=== PATIENT | male | born 1940 | race Two or more races ===

== ENCOUNTER 2021-02-10 22:51 | Inpatient (IN) | payer MEDICARE, MEDICAID ==
[~2021-02-10] VITALS: Ht 167.6 cm; Wt 44.5 kg
[2021-02-10] MEDS ORDERED: ONDANSETRON HCL 4MG/2ML INJ IV STA (22:54)
[2021-02-10] MEDS ORDERED: FAMOTIDINE 20MG/2ML VIAL IV STA (22:54)
[2021-02-10] MEDS ORDERED: PANTOPRAZOLE SODIUM 40 MG/VIAL IV STA (22:54)
[2021-02-10] MEDS ORDERED: PIPERACILLIN/TAZ 3.375G PREMIX 50 ML IV ONE (23:00)
[2021-02-10 23:35] LABS: BG BASE EXCESS 4.8 mmol/L (-2.0-2.0); BG CARBOXYHEMOGLOBIN 0.5 % (0.5-1.5); BG DEOXYHEMOGLOBIN 2.3 % (0.0-5.0); BG FRACTION INSPIRED OXYGEN 21; BG HCO3 ACT 24.8 mmol/L (22.0-26.0); BG METHEMOGLOBIN 0.2 % (0.0-1.5); BG OXYGEN SATURATION 97.7 % (92.0-98.5); BG PCO2 21.9 mmHg (35.0-45.0); BG PH 7.672 (7.350-7.450); BG PO2 86.1 mmHg (75.0-100.0); BG SAMPLE SITE LEFT RADIAL; BG TOTAL HEMOGLOBIN 8.5 g/dL (12.0-18.0); BG VENT MODE ROOM AIR
[2021-02-11] VITALS (20 sets, daily range): BP systolic 92–159; BP diastolic 49–94
[2021-02-11] MEDS ORDERED: DIPHENHYDRAMINE 50MG/ML VIAL IV PRN
[2021-02-11] MEDS ORDERED: CLONIDINE 0.1MG TABLET PO PRN
[2021-02-11] MEDS ORDERED: ONDANSETRON HCL 4MG/2ML INJ IV PRN
[2021-02-11 00:05] LABS: BASOPHILS % 0.2 % (0.0-2.0); EOSINOPHILS % 0.6 % (0.0-5.0); HEMATOCRIT. 24.3 % (42.0-52.0); HEMOGLOBIN. 8.5 g/dL (14.0-18.0); LYMPHOCYTES % 25.4 % (20.0-50.0); MEAN CORPUSCULAR HEMOGLOBIN 29.9 pg (28.0-32.0); MEAN CORPUSCULAR VOLUME 85.3 fL (80.0-94.0); MEAN PLATELET VOLUME 9.8 fl (7.4-10.4); MONOCYTES % 6.1 % (2.0-8.0); NEUTROPHILS % 67.7 % (40.0-76.0); PLATELET 353 x1000/uL (130-400); RED BLOOD CELL COUNT 2.86 mill/uL (4.7-6.1)
[2021-02-11 00:10] LABS: CHLORIDE 105 mEq/L (98-107)
[2021-02-11 00:11] LABS: INR 1.1; PROTHROMBIN TIME 11.3 sec (9.6-11.0)
[2021-02-11 00:16] LABS: TOTAL IRON BINDING CAPACITY 166 ug/dL (250-450)
[2021-02-11] MEDS: DEXT 5%/0.45% NACL 1000ML 1,000 ML IV SCH ×2 (02:24→18:20)
[2021-02-11 06:20] LABS: HEMATOCRIT 21.7 % (42.0-52.0); HEMOGLOBIN 7.2 g/dL (14.0-18.0)
[2021-02-11] MEDS: PANTOPRAZOLE SODIUM 40 MG/VIAL IV SCH (10:35)
[2021-02-11] MEDS ORDERED: SORBITOL 70% SOLN 30ML PO NR (11:00)
[2021-02-11] MEDS ORDERED: MINERAL OIL ENEMA 133ML PR NR (12:30)
[2021-02-11 12:41] LABS: TOTAL IRON BINDING CAPACITY 179 ug/dL (250-450)
[2021-02-11] MEDS: ACETAMINOPHEN 650MG/20.3ML UDC GT PRN (14:47)
[2021-02-11] MEDS ORDERED: NA PHOS,M-B/NA PHOS,DI-BA ENEMA 118ML PR NR (16:00)
[2021-02-11 20:32] LABS: HEMATOCRIT 29.8 % (42.0-52.0); HEMOGLOBIN 10.2 g/dL (14.0-18.0)
[2021-02-11 21:10] LABS: FOLIC ACID (FOLATE) SERUM 16.7 ng/mL (>5.38)
[2021-02-12] VITALS (13 sets, daily range): BP systolic 110–148; BP diastolic 56–88
[2021-02-12 07:33] LABS: BASOPHILS % 0.3 % (0.0-2.0); EOSINOPHILS % 0.4 % (0.0-5.0); HEMATOCRIT. 32.5 % (42.0-52.0); HEMOGLOBIN. 10.7 g/dL (14.0-18.0); LYMPHOCYTES % 14.5 % (20.0-50.0); MEAN CORPUSCULAR HEMOGLOBIN 28.9 pg (28.0-32.0); MEAN CORPUSCULAR VOLUME 87.2 fL (80.0-94.0); MEAN PLATELET VOLUME 9.8 fl (7.4-10.4); MONOCYTES % 6.5 % (2.0-8.0); NEUTROPHILS % 78.3 % (40.0-76.0); PLATELET 274 x1000/uL (130-400); RED BLOOD CELL COUNT 3.72 mill/uL (4.7-6.1); RED CELL DISTRIBUTION WIDTH 15.6 % (11.6-14.6)
[2021-02-12 08:01] LABS: CHLORIDE 109 mEq/L (98-107)
[2021-02-12] MEDS: PANTOPRAZOLE SODIUM 40 MG/VIAL IV SCH (08:20)
[2021-02-12] MEDS: DEXT 5%/0.45% NACL 1000ML 1,000 ML IV SCH ×2 (08:21→23:40)
[2021-02-12 16:14] LABS: HEMOGLOBIN 10.4 g/dL (14.0-18.0)
[2021-02-12] MEDS: ACETAMINOPHEN 650MG/20.3ML UDC GT PRN (18:11)
[2021-02-12 23:32] LABS: HEMATOCRIT 28.7 % (42.0-52.0); HEMOGLOBIN 9.8 g/dL (14.0-18.0)
[2021-02-13] VITALS (11 sets, daily range): BP systolic 91–147; BP diastolic 43–84
[2021-02-13] MEDS: ACETAMINOPHEN 650MG/20.3ML UDC GT PRN ×2 (02:05→12:40)
[2021-02-13 07:24] LABS: HEMATOCRIT 31.8 % (42.0-52.0); HEMOGLOBIN 10.8 g/dL (14.0-18.0)
[2021-02-13] MEDS: PANTOPRAZOLE SODIUM 40 MG/VIAL IV SCH (08:39)
[2021-02-13] MEDS: DEXT 5%/0.45% NACL 1000ML 1,000 ML IV SCH (14:02)
[2021-02-13 16:44] LABS: HEMATOCRIT 30.8 % (42.0-52.0); HEMOGLOBIN 10.4 g/dL (14.0-18.0)
[2021-02-13] MEDS: LIDOCAINE 5% PATCH TOP SCH (22:29)
[2021-02-13 23:46] LABS: HEMATOCRIT 29.5 % (42.0-52.0); HEMOGLOBIN 10.1 g/dL (14.0-18.0)
[2021-02-14] VITALS (11 sets, daily range): BP systolic 99–136; BP diastolic 52–70
[2021-02-14] MEDS: DEXT 5%/0.45% NACL 1000ML 1,000 ML IV SCH ×2 (05:09→21:14)
[2021-02-14 08:30] LABS: BASOPHILS % 0.5 % (0.0-2.0); EOSINOPHILS % 2.4 % (0.0-5.0); HEMATOCRIT. 28.4 % (42.0-52.0); HEMOGLOBIN. 9.4 g/dL (14.0-18.0); LYMPHOCYTES % 27.8 % (20.0-50.0); MEAN CORPUSCULAR HEMOGLOBIN 29.9 pg (28.0-32.0); MEAN CORPUSCULAR VOLUME 90.1 fL (80.0-94.0); MEAN PLATELET VOLUME 10.5 fl (7.4-10.4); MONOCYTES % 9.2 % (2.0-8.0); NEUTROPHILS % 60.1 % (40.0-76.0); PLATELET 254 x1000/uL (130-400); RED BLOOD CELL COUNT 3.15 mill/uL (4.7-6.1); RED CELL DISTRIBUTION WIDTH 16.2 % (11.6-14.6)
[2021-02-14 08:37] LABS: CHLORIDE 112 mEq/L (98-107)
[2021-02-14] MEDS: PANTOPRAZOLE SODIUM 40 MG/VIAL IV SCH (09:02)
[2021-02-14] MEDS: LIDOCAINE 5% PATCH TOP SCH (21:15)
[2021-02-15] VITALS (18 sets, daily range): BP systolic 101–135; BP diastolic 55–76
[2021-02-15] MEDS: PANTOPRAZOLE SODIUM 40 MG/VIAL IV SCH (09:26)
[2021-02-15 10:51] LABS: BASOPHILS % 0.6 % (0.0-2.0); EOSINOPHILS % 2.2 % (0.0-5.0); HEMATOCRIT. 29.7 % (42.0-52.0); HEMOGLOBIN. 10.1 g/dL (14.0-18.0); LYMPHOCYTES % 25.6 % (20.0-50.0); MEAN PLATELET VOLUME 10.1 fl (7.4-10.4); MONOCYTES % 8.7 % (2.0-8.0); NEUTROPHILS % 62.9 % (40.0-76.0); PLATELET 303 x1000/uL (130-400); RED BLOOD CELL COUNT 3.37 mill/uL (4.7-6.1); RED CELL DISTRIBUTION WIDTH 16.4 % (11.6-14.6)
[2021-02-15 12:22] LABS: CHLORIDE 112 mEq/L (98-107)
[2021-02-15] MEDS: DEXT 5%/0.45% NACL 1000ML 1,000 ML IV SCH (13:15)
[2021-02-15] MEDS: LIDOCAINE 5% PATCH TOP SCH (21:49)
[2021-02-16] VITALS (12 sets, daily range): BP systolic 98–123; BP diastolic 55–69
[2021-02-16] MEDS: DEXT 5%/0.45% NACL 1000ML 1,000 ML IV SCH (04:17)
[2021-02-16 07:25] LABS: BASOPHILS % 0.5 % (0.0-2.0); EOSINOPHILS % 3.3 % (0.0-5.0); HEMATOCRIT. 27.9 % (42.0-52.0); HEMOGLOBIN. 9.4 g/dL (14.0-18.0); LYMPHOCYTES % 32.1 % (20.0-50.0); MEAN CORPUSCULAR HEMOGLOBIN 29.7 pg (28.0-32.0); MEAN PLATELET VOLUME 9.8 fl (7.4-10.4); MONOCYTES % 10.8 % (2.0-8.0); NEUTROPHILS % 53.3 % (40.0-76.0); PLATELET 289 x1000/uL (130-400); RED BLOOD CELL COUNT 3.17 mill/uL (4.7-6.1); RED CELL DISTRIBUTION WIDTH 16.5 % (11.6-14.6)
[2021-02-16] MEDS: PANTOPRAZOLE SODIUM 40 MG/VIAL IV SCH (08:31)
[2021-02-16 09:13] LABS: CHLORIDE 110 mEq/L (98-107)
== END 2021-02-16 14:27 | DRG 380 ==
LOC: ER 22:58 → MICUSO 02-11 00:24 → 3WST 02-11 04:38 → MICUSO 02-11 05:41 → 6EST 02-11 07:13 → MICUSO 02-11 08:23 → 6EST 02-11 08:40 → 3WST 02-11 12:33
PROVIDERS: ADMIT Internal Medicine Nephrology; ATTEND Internal Medicine Nephrology
PROC: 30233N1 Transfusion of Nonautologous Red Blood Cells into Peripheral Vein, Percutaneous Approach (ICD-10-PCS; principal; 2021-02-11)
DX: K22.11 Ulcer of esophagus with bleeding (principal); E43 Unspecified severe protein-calorie malnutrition; Z68.1 Body mass index [BMI] 19.9 or less, adult; K56.41 Fecal impaction; G62.9 Polyneuropathy, unspecified; E78.5 Hyperlipidemia, unspecified; I10 Essential (primary) hypertension; Z20.822 Contact with and (suspected) exposure to COVID-19; J44.9 Chronic obstructive pulmonary disease, unspecified; F32.9 Major depressive disorder, single episode, unspecified; I95.9 Hypotension, unspecified; D64.9 Anemia, unspecified; Z86.73 Personal history of transient ischemic attack (TIA), and cerebral infarction without residual deficits; Z93.1 Gastrostomy status; K22.70 Barrett's esophagus without dysplasia
CPT/HCPCS: 36415; 36600; 71045; 74176; 80048; 80053; 82270; 82375; 82728; 82746; 82805; 83540; 83550; 83605; 83880; 84484; 85014; 85018; 85025; 85044; 86850; 86900; 86920; 87426; 93005; 93971; 99285; A6261; C9113; J2405; J2543; J3490; J7040; J7042; P9016

== ENCOUNTER 2021-04-30 20:39 | Emergency (ER) | payer MEDICARE, MEDICAID ==
[~2021-04-30] VITALS: Ht 154.9 cm; Wt 50.0 kg
[2021-05-01 08:40] VITALS: BP 121/64
== END 2021-05-01 08:51 ==
LOC: ER 20:39
DX: M16.11 Unilateral primary osteoarthritis, right hip (principal); Z91.81 History of falling; K59.09 Other constipation; K44.9 Diaphragmatic hernia without obstruction or gangrene; R03.0 Elevated blood-pressure reading, without diagnosis of hypertension; K76.0 Fatty (change of) liver, not elsewhere classified; Z87.81 Personal history of (healed) traumatic fracture; N20.0 Calculus of kidney; J44.9 Chronic obstructive pulmonary disease, unspecified; E78.00 Pure hypercholesterolemia, unspecified; Z86.73 Personal history of transient ischemic attack (TIA), and cerebral infarction without residual deficits
CPT/HCPCS: 74176; 99284

== ENCOUNTER 2022-04-12 14:35 | Inpatient (IN) | payer MEDICARE, MEDICAID ==
[~2022-04-12] VITALS: Ht 172.7 cm; Wt 60.1 kg
[~2022-04-12 14:35] MED LIST: ASPI-1497 PO; BISA10SU62 RC; CLON-457 GT; FE300LUD MT; LIP40 MT; MIRT-118 PO; MOM PO; OLAN5TAB6 PO; OMEP20CA14 PO; ONDA4TAB50 PO; PROT40 MT; [UNRECOGNIZED DRUG - CODE]
[2022-04-12 15:59] LABS: BASOPHILS % 0.3 % (0.0-2.0); EOSINOPHILS % 1.6 % (0.0-5.0); MEAN CORPUSCULAR HEMOGLOBIN 26.5 pg (28.0-32.0); MEAN CORPUSCULAR VOLUME 84.4 fL (80.0-94.0); MEAN PLATELET VOLUME 11.3 fl (7.4-10.4); MONOCYTES % 9.4 % (2.0-8.0); NEUTROPHILS % 74.7 % (40.0-76.0); PLATELET 261 x1000/uL (130-400); RED BLOOD CELL COUNT 2.09 mill/uL (4.7-6.1); RED CELL DISTRIBUTION WIDTH 17.8 % (11.6-14.6)
[2022-04-12 16:05] LABS: HEMATOCRIT. 17.6 % (42.0-52.0); HEMOGLOBIN. 5.5 g/dL (14.0-18.0)
[2022-04-12 16:06] LABS: CHLORIDE 107 mEq/L (98-107)
[2022-04-12 16:07] LABS: PROTHROMBIN TIME 10.9 sec (9.6-11.0)
[2022-04-12] MEDS ORDERED: PANTOPRAZOLE SODIUM 40 MG/VIAL IV ONE (16:30)
[2022-04-12] MEDS ORDERED: ONDANSETRON HCL 4MG/2ML INJ IV PRN (16:45)
[2022-04-12] MEDS ORDERED: ACETAMINOPHEN 650MG SUPP PR PRN (16:45)
[2022-04-12] MEDS ORDERED: CLONIDINE 0.1MG TABLET PO PRN (16:45)
[2022-04-12] MEDS ORDERED: CEFTRIAXONE 1 G PREMIX 50 ML IV NR (17:00)
[2022-04-12 17:14] LABS: TOTAL IRON BINDING CAPACITY 254 ug/dL (250-450)
[2022-04-12] MEDS ORDERED: PANTOPRAZOLE SODIUM 40 MG/VIAL IV NR (17:15)
[2022-04-12 19:00] VITALS: BP 127/67
[2022-04-12 20:00] VITALS: BP 123/63
[2022-04-12] MEDS: CEFTRIAXONE 1,000 MG in DEXTROSE 5% WATER 50 ML IV SCH (20:49)
[2022-04-12 22:15] VITALS: BP 94/73
[2022-04-12 22:30] VITALS: BP 123/94
[2022-04-12 23:30] VITALS: BP 123/76
[2022-04-13] VITALS (7 sets, daily range): BP systolic 106–157; BP diastolic 58–84
[2022-04-13 03:19] LABS: CLARITY URINE CLEAR (CLEAR); COLOR URINE YELLOW (YELLOW); KETONES URINE NEGATIVE (NEGATIVE); LEUKOCYTE ESTERASE URINE NEGATIVE (NEGATIVE); NITRITE URINE NEGATIVE (NEGATIVE); OCCULT BLOOD URINE NEGATIVE (NEGATIVE); PROTEIN URINE NEGATIVE (NEGATIVE); SPECIFIC GRAVITY URINE 1.016 (1.005-1.030)
[2022-04-13 08:28] LABS: BASOPHILS % 0.5 % (0.0-2.0); EOSINOPHILS % 3.8 % (0.0-5.0); HEMATOCRIT. 23.3 % (42.0-52.0); LYMPHOCYTES % 16.7 % (20.0-50.0); MEAN CORPUSCULAR HEMOGLOBIN 28.5 pg (28.0-32.0); MEAN CORPUSCULAR VOLUME 87.1 fL (80.0-94.0); MEAN PLATELET VOLUME 11.4 fl (7.4-10.4); MONOCYTES % 10.9 % (2.0-8.0); NEUTROPHILS % 68.1 % (40.0-76.0); PLATELET 233 x1000/uL (130-400); RED BLOOD CELL COUNT 2.68 mill/uL (4.7-6.1); RED CELL DISTRIBUTION WIDTH 17.5 % (11.6-14.6)
[2022-04-13 08:33] LABS: HEMATOCRIT 23.3 % (42.0-52.0); HEMOGLOBIN 7.7 g/dL (14.0-18.0)
[2022-04-13 08:45] LABS: HEMOGLOBIN. 7.6 g/dL (14.0-18.0)
[2022-04-13] MEDS ORDERED: PANTOPRAZOLE SODIUM 40 MG/VIAL IV SCH (09:00)
[2022-04-13] MEDS: IRON SUCROSE COMPLEX 100 MG/5 ML ML IV SCH (09:13)
[2022-04-13] MEDS: DEXT 5%/0.45% NACL 1000ML 1,000 ML IV SCH (09:14)
[2022-04-13] MEDS ORDERED: DIATR MEGLU/DIATRIZOATE SOLN 30ML PO SCH (09:45)
[2022-04-13 10:37] LABS: CHLORIDE 108 mEq/L (98-107)
[2022-04-13 16:58] LABS: FERRITIN 111 ng/mL (22-322)
[2022-04-13 19:37] LABS: HEMATOCRIT 27.8 % (42.0-52.0)
[2022-04-13 20:07] LABS: VITAMIN B12 SERUM 674 pg/mL (211-911)
[2022-04-13 20:48] LABS: FOLIC ACID (FOLATE) SERUM > 20.00 ng/mL (>5.38)
[2022-04-13] MEDS: PANTOPRAZOLE SODIUM 40 MG/VIAL IV SCH (21:01)
[2022-04-14] VITALS: BP 114/78
[2022-04-14 02:00] LABS: HEMATOCRIT 27.1 % (42.0-52.0); HEMOGLOBIN 8.8 g/dL (14.0-18.0)
[2022-04-14 04:00] VITALS: BP 107/60
[2022-04-14] MEDS: DEXT 5%/0.45% NACL 1000ML 1,000 ML IV SCH ×2 (04:54→22:14)
[2022-04-14 08:16] VITALS: BP 148/75
[2022-04-14] MEDS: IRON SUCROSE COMPLEX 100 MG/5 ML ML IV SCH (08:27)
[2022-04-14] MEDS: PANTOPRAZOLE SODIUM 40 MG/VIAL IV SCH ×2 (08:27→22:14)
[2022-04-14 08:55] LABS: CHLORIDE 103 mEq/L (98-107)
[2022-04-14 08:57] LABS: INR 1.1; PROTHROMBIN TIME 11.4 sec (9.6-11.0)
[2022-04-14 09:02] LABS: BASOPHILS % 0.4 % (0.0-2.0); EOSINOPHILS % 2.5 % (0.0-5.0); LYMPHOCYTES % 16.9 % (20.0-50.0); MEAN CORPUSCULAR HEMOGLOBIN 27.8 pg (28.0-32.0); MEAN CORPUSCULAR VOLUME 87.8 fL (80.0-94.0); MEAN PLATELET VOLUME 11.1 fl (7.4-10.4); MONOCYTES % 6.4 % (2.0-8.0); NEUTROPHILS % 73.8 % (40.0-76.0); PLATELET 348 x1000/uL (130-400); RED BLOOD CELL COUNT 3.27 mill/uL (4.7-6.1)
[2022-04-14 09:12] LABS: PHOSPHORUS 3.9 mg/dL (2.5-4.9)
[2022-04-14 09:16] LABS: HEMOGLOBIN. 9.1 g/dL (14.0-18.0)
[2022-04-14 09:17] LABS: HEMATOCRIT. 28.7 % (42.0-52.0)
[2022-04-14] MEDS: CEFTRIAXONE 1,000 MG in DEXTROSE 5% WATER 50 ML IV SCH ×2 (11:40→22:13)
[2022-04-14 11:59] VITALS: BP 110/67
[2022-04-14] MEDS ORDERED: PROPOFOL 200MG/20ML VIAL IV ONE (13:10)
[2022-04-14] MEDS ORDERED: LIDOCAINE HCL 1% 20ML VIAL (Pyxis) INJ ONE (13:12)
[2022-04-14] MEDS ORDERED: MIDAZOLAM HCL 2 MG/2 ML VIAL ONE (13:13)
[2022-04-14 13:19] LABS: HEMATOCRIT 23.9 % (42.0-52.0); HEMOGLOBIN 7.8 g/dL (14.0-18.0)
[2022-04-14 15:46] VITALS: BP 142/77
[2022-04-14 20:00] VITALS: BP 136/77
[2022-04-15] VITALS (7 sets, daily range): BP systolic 93–146; BP diastolic 53–72
[2022-04-15] MEDS: IRON SUCROSE COMPLEX 100 MG/5 ML ML IV SCH (08:23)
[2022-04-15] MEDS: PANTOPRAZOLE SODIUM 40 MG/VIAL IV SCH ×2 (08:23→19:46)
[2022-04-15 11:12] LABS: BASOPHILS % 0.3 % (0.0-2.0); EOSINOPHILS % 1.3 % (0.0-5.0); HEMATOCRIT. 24.8 % (42.0-52.0); LYMPHOCYTES % 16.1 % (20.0-50.0); MEAN CORPUSCULAR HEMOGLOBIN 27.9 pg (28.0-32.0); MEAN CORPUSCULAR VOLUME 86.8 fL (80.0-94.0); MEAN PLATELET VOLUME 10.8 fl (7.4-10.4); MONOCYTES % 7.1 % (2.0-8.0); NEUTROPHILS % 75.2 % (40.0-76.0); PLATELET 344 x1000/uL (130-400); RED BLOOD CELL COUNT 2.85 mill/uL (4.7-6.1); RED CELL DISTRIBUTION WIDTH 18.1 % (11.6-14.6)
[2022-04-15 11:30] LABS: CHLORIDE 107 mEq/L (98-107)
[2022-04-15] MEDS: CEFTRIAXONE 1,000 MG in DEXTROSE 5% WATER 50 ML IV SCH (11:49)
[2022-04-15] MEDS: DEXT 5%/0.45% NACL 1000ML 1,000 ML IV SCH (19:46)
== END 2022-04-15 20:24 | DRG 811 ==
LOC: ER 14:35 → 8WST 16:22 → EDBEDREQ 16:23 → EDBEDREQTM 16:23
PROVIDERS: ADMIT Internal Medicine Nephrology; ATTEND Internal Medicine Nephrology
PROC: 30233N1 Transfusion of Nonautologous Red Blood Cells into Peripheral Vein, Percutaneous Approach (ICD-10-PCS; 2022-04-12)
PROC: 0DB78ZX Excision of Stomach, Pylorus, Via Natural or Artificial Opening Endoscopic, Diagnostic (ICD-10-PCS; principal; 2022-04-14)
DX: D62 Acute posthemorrhagic anemia (principal); E43 Unspecified severe protein-calorie malnutrition; J18.9 Pneumonia, unspecified organism; K29.70 Gastritis, unspecified, without bleeding; D50.9 Iron deficiency anemia, unspecified; I10 Essential (primary) hypertension; J44.9 Chronic obstructive pulmonary disease, unspecified; K22.70 Barrett's esophagus without dysplasia; K44.9 Diaphragmatic hernia without obstruction or gangrene; Z20.822 Contact with and (suspected) exposure to COVID-19; M19.90 Unspecified osteoarthritis, unspecified site; E78.00 Pure hypercholesterolemia, unspecified; Z87.11 Personal history of peptic ulcer disease; Z86.73 Personal history of transient ischemic attack (TIA), and cerebral infarction without residual deficits; Z79.899 Other long term (current) drug therapy; Z93.1 Gastrostomy status
CPT/HCPCS: 36415; 71045; 74176; 80048; 80053; 81003; 82607; 82728; 82746; 82941; 83540; 83550; 83735; 84100; 85014; 85018; 85025; 85044; 86850; 86900; 86920; 87426; 88305; 93005; 93306; 93970; 99291; C9113; J0696; J2250; J2704; J3490; J7060; P9016; Q9963

== ENCOUNTER 2022-04-24 03:03 | Inpatient (IN) | payer MEDICARE, MEDICAID ==
[2022-04-24] VITALS (27 sets, daily range): BP systolic 82–134; BP diastolic 39–73
[~2022-04-24] VITALS: Ht 167.6 cm; Wt 59.4 kg
[2022-04-24] MEDS ORDERED: OCTREOTIDE 1,000 MCG in SODIUM CHLORIDE 0.9% 100 ML IV STA (03:24)
[2022-04-24] MEDS ORDERED: PANTOPRAZOLE SODIUM 40 MG/VIAL IV STA (03:24)
[2022-04-24] MEDS ORDERED: OCTREOTIDE ACETATE 50 MCG/ML 1ML IV STA (03:24)
[2022-04-24] MEDS ORDERED: ONDANSETRON HCL 4MG/2ML INJ IV STA (03:24)
[2022-04-24] MEDS ORDERED: MORPHINE SULFATE 4 MG/ML CPJ (NOT FOR IM USE) IV STA (03:24)
[2022-04-24] MEDS ORDERED: SODIUM CHLORIDE 0.9% 1000ML BAG (SEPSIS BOLUS) IV ONE (03:30)
[2022-04-24 04:13] LABS: CHLORIDE 103 mEq/L (98-107)
[2022-04-24 04:23] LABS: INR 1.1; PARTIAL THROMBOPLASTIN TIME < 21.0 sec (23.4-31.0); PROTHROMBIN TIME 11.7 sec (9.6-11.0)
[2022-04-24 04:31] LABS: MEAN CORPUSCULAR HEMOGLOBIN 29.4 pg (28.0-32.0); MEAN CORPUSCULAR VOLUME 104.7 fL (80.0-94.0); MEAN PLATELET VOLUME 11.9 fl (7.4-10.4); PLATELET 290 x1000/uL (130-400); RED BLOOD CELL COUNT 1.69 mill/uL (4.7-6.1); RED CELL DISTRIBUTION WIDTH 21.1 % (11.6-14.6)
[2022-04-24 04:36] LABS: HEMATOCRIT. 17.7 % (42.0-52.0)
[2022-04-24 05:29] LABS: NUCLEATED RED BLOOD CELLS 1 /100 WBC
[2022-04-24 05:30] LABS: PLATELET ESTIMATE NORMAL
[2022-04-24] MEDS ORDERED: PANTOPRAZOLE SODIUM 40 MG/VIAL IV NR (06:45)
[2022-04-24] MEDS ORDERED: MORPHINE SULFATE 4 MG/ML CPJ (NOT FOR IM USE) IV NR (06:45)
[2022-04-24] MEDS ORDERED: ONDANSETRON HCL 4MG/2ML INJ IV NR (06:45)
[2022-04-24] MEDS ORDERED: CEFTRIAXONE 1 G PREMIX 50 ML IV SCH (08:15)
[2022-04-24] MEDS: DEXT 5%/0.45% NACL 1000ML 1,000 ML IV SCH (08:30)
[2022-04-24] MEDS ORDERED: SODIUM CHLORIDE 0.9% 250 ML IV NR (08:30)
[2022-04-24] MEDS ORDERED: DIPHENHYDRAMINE 50MG/ML VIAL IV PRN (08:30)
[2022-04-24] MEDS ORDERED: GUAIFENESIN 200MG/10ML SUGAR FREE UDC PO PRN (08:30)
[2022-04-24] MEDS ORDERED: ONDANSETRON HCL 4MG/2ML INJ IV PRN (08:30)
[2022-04-24] MEDS ORDERED: ACETAMINOPHEN 650MG/20.3ML UDC GT PRN (08:30)
[2022-04-24 09:00] LABS: BG CARBOXYHEMOGLOBIN 0.3 % (0.5-1.5); BG DEOXYHEMOGLOBIN 8.8 % (0.0-5.0); BG HCO3 ACT 10.6 mmol/L (22.0-26.0); BG METHEMOGLOBIN 0.3 % (0.0-1.5); BG OXYGEN SATURATION 91.1 % (92.0-98.5); BG OXYHEMOGLOBIN 90.6 % (94.0-97.0); BG PCO2 21.6 mmHg (35.0-45.0); BG PH 7.309 (7.350-7.450); BG PO2 63.9 mmHg (75.0-100.0); BG SAMPLE SITE RIGHT BRACHIAL; BG TOTAL HEMOGLOBIN 9.2 g/dL (12.0-18.0); BG VENT MODE MASK - NRB
[2022-04-24] MEDS ORDERED: NOREPINEPHRINE 8MG/250ML PMX 250 ML IV PRN (09:00)
[2022-04-24 09:24] LABS: HEMATOCRIT 26.3 % (42.0-52.0); MEAN CORPUSCULAR HEMOGLOBIN 29.5 pg (28.0-32.0); PLATELET 234 x1000/uL (130-400); RED BLOOD CELL COUNT 2.72 mill/uL (4.7-6.1)
[2022-04-24 09:33] LABS: MEAN CORPUSCULAR VOLUME 96.8 fL (80.0-94.0)
[2022-04-24] MEDS ORDERED: VANCOMYCIN 1.25GM PMX (XELLIA) 250 ML IV NR (10:10)
[2022-04-24 14:39] LABS: BG BASE EXCESS -4.4 mmol/L (-2.0-2.0); BG CARBOXYHEMOGLOBIN 0.7 % (0.5-1.5); BG DEOXYHEMOGLOBIN 6.2 % (0.0-5.0); BG FRACTION INSPIRED OXYGEN 100; BG HCO3 ACT 18.4 mmol/L (22.0-26.0); BG METHEMOGLOBIN 0.5 % (0.0-1.5); BG OXYGEN SATURATION 93.7 % (92.0-98.5); BG OXYHEMOGLOBIN 92.6 % (94.0-97.0); BG PCO2 25.5 mmHg (35.0-45.0); BG PH 7.475 (7.350-7.450); BG PO2 65.5 mmHg (75.0-100.0); BG SAMPLE SITE RIGHT BRACHIAL; BG TOTAL HEMOGLOBIN 8.6 g/dL (12.0-18.0); BG VENT MODE MASK - NRB
[2022-04-24 16:27] LABS: TOTAL IRON BINDING CAPACITY 284 ug/dL (250-450)
[2022-04-24] MEDS: PANTOPRAZOLE SODIUM 40 MG/VIAL IV SCH (18:04)
[2022-04-24 18:19] LABS: CREATINE KINASE MB FRACTION 3.7 ng/mL (0.5-3.6)
[2022-04-24 18:57] LABS: FERRITIN 1050 ng/mL (22-322)
[2022-04-24 19:01] LABS: VITAMIN B12 SERUM 597 pg/mL (211-911)
[2022-04-24] MEDS ORDERED: MIDO5TAB4 GT (19:01)
[2022-04-24] MEDS ORDERED: PANTOPRAZOLE SODIUM 40 MG/VIAL IV SCH (21:00)
[2022-04-24] MEDS ORDERED: CEFEPIME 1,000 MG in DEXTROSE 5% WATER 50 ML IV SCH (21:00)
[2022-04-25] VITALS (101 sets, daily range): BP systolic 82–127; BP diastolic 40–96
[2022-04-25 00:20] LABS: CLARITY URINE CLEAR (CLEAR); COLOR URINE YELLOW (YELLOW); KETONES URINE NEGATIVE (NEGATIVE); LEUKOCYTE ESTERASE URINE NEGATIVE (NEGATIVE); NITRITE URINE NEGATIVE (NEGATIVE); OCCULT BLOOD URINE NEGATIVE (NEGATIVE); PROTEIN URINE NEGATIVE (NEGATIVE); SPECIFIC GRAVITY URINE 1.019 (1.005-1.030); UROBILINOGEN URINE 0.2 E.U./dL (0.2-1.0)
[2022-04-25 01:53] LABS: CHLORIDE 112 mEq/L (98-107)
[2022-04-25 02:01] LABS: CREATINE KINASE 123 IU/L (39-308); CREATINE KINASE MB FRACTION 3.2 ng/mL (0.5-3.6)
[2022-04-25 04:40] LABS: BASOPHILS % 0.2 % (0.0-2.0); EOSINOPHILS % 0.1 % (0.0-5.0); HEMATOCRIT. 23.5 % (42.0-52.0); HEMOGLOBIN. 7.4 g/dL (14.0-18.0); LYMPHOCYTES % 7.5 % (20.0-50.0); MEAN CORPUSCULAR HEMOGLOBIN 29.6 pg (28.0-32.0); MEAN CORPUSCULAR VOLUME 93.7 fL (80.0-94.0); MEAN PLATELET VOLUME 11.2 fl (7.4-10.4); MONOCYTES % 5.4 % (2.0-8.0); NEUTROPHILS % 86.8 % (40.0-76.0); PLATELET 163 x1000/uL (130-400); RED CELL DISTRIBUTION WIDTH 16.2 % (11.6-14.6)
[2022-04-25 04:47] LABS: INR 1.2; PROTHROMBIN TIME 12.8 sec (9.6-11.0)
[2022-04-25 05:02] LABS: CHLORIDE 111 mEq/L (98-107)
[2022-04-25] MEDS: PANTOPRAZOLE SODIUM 40 MG/VIAL IV SCH ×2 (05:25→16:57)
[2022-04-25] MEDS: DEXT 5%/0.45% NACL 1000ML 1,000 ML IV SCH ×2 (05:28→16:57)
[2022-04-25] MEDS ORDERED: NOREPINEPHRINE 8 MG in DEXT 5% WATER 242 ML IV PRN (07:15)
[2022-04-25] MEDS ORDERED: SODIUM POLYSTYRENE SULFONATE 15 G/60 ML BOT PO NR (07:15)
[2022-04-25 09:20] LABS: BG BASE EXCESS -1.7 mmol/L (-2.0-2.0); BG CARBOXYHEMOGLOBIN 0.9 % (0.5-1.5); BG DEOXYHEMOGLOBIN 2.6 % (0.0-5.0); BG FRACTION INSPIRED OXYGEN 40; BG HCO3 ACT 21.7 mmol/L (22.0-26.0); BG METHEMOGLOBIN 0.7 % (0.0-1.5); BG OXYGEN SATURATION 97.4 % (92.0-98.5); BG OXYHEMOGLOBIN 95.8 % (94.0-97.0); BG PCO2 30.2 mmHg (35.0-45.0); BG PH 7.475 (7.350-7.450); BG PO2 95.6 mmHg (75.0-100.0); BG SAMPLE SITE LEFT BRACHIAL; BG TOTAL HEMOGLOBIN 6.1 g/dL (12.0-18.0); BG VENT MODE NASAL CANNULA
[2022-04-25] MEDS: CITRIC ACID/SODIUM CITRATE SOLN 30ML UDC PO SCH ×3 (09:23→16:57)
[2022-04-25] MEDS: CEFEPIME 1,000 MG in DEXTROSE 5% WATER 50 ML IV SCH ×2 (09:23→20:55)
[2022-04-25] MEDS ORDERED: VANCOMYCIN 1,000 MG in DEXT 5% WATER 250 ML IV SCH ×2 (10:00→12:00)
[2022-04-25 12:51] LABS: HEMATOCRIT 25.2 % (42.0-52.0); HEMOGLOBIN 8.2 g/dL (14.0-18.0)
[2022-04-25] MEDS ORDERED: METRONIDAZOLE 500 MG PREMIX 100 ML IV SCH (13:00)
[2022-04-25 13:39] LABS: CHLORIDE 112 mEq/L (98-107)
[2022-04-25] MEDS: METRONIDAZOLE 500 MG PREMIX 100 ML IV SCH (20:54)
[2022-04-25 21:09] LABS: HEMATOCRIT 23.5 % (42.0-52.0); HEMOGLOBIN 7.7 g/dL (14.0-18.0)
[2022-04-25 21:14] LABS: CHLORIDE 111 mEq/L (98-107)
[2022-04-26] VITALS (58 sets, daily range): BP systolic 85–124; BP diastolic 37–101
[2022-04-26 00:09] LABS: HEMATOCRIT 23.4 % (42.0-52.0); HEMOGLOBIN 7.6 g/dL (14.0-18.0)
[2022-04-26] MEDS: CEFEPIME 1,000 MG in DEXTROSE 5% WATER 50 ML IV SCH ×3 (00:40→20:10)
[2022-04-26 00:58] LABS: CHLORIDE 111 mEq/L (98-107)
[2022-04-26 06:03] LABS: HEMATOCRIT. 22.6 % (42.0-52.0); HEMOGLOBIN. 7.5 g/dL (14.0-18.0); MEAN CORPUSCULAR HEMOGLOBIN 30.1 pg (28.0-32.0); MEAN CORPUSCULAR VOLUME 90.9 fL (80.0-94.0); MEAN PLATELET VOLUME 11.9 fl (7.4-10.4); PLATELET 131 x1000/uL (130-400); RED BLOOD CELL COUNT 2.48 mill/uL (4.7-6.1)
[2022-04-26] MEDS: PANTOPRAZOLE SODIUM 40 MG/VIAL IV SCH ×2 (06:21→18:39)
[2022-04-26 08:26] LABS: CHLORIDE 112 mEq/L (98-107)
[2022-04-26 08:31] LABS: PHOSPHORUS 1.9 mg/dL (2.5-4.9)
[2022-04-26] MEDS: METRONIDAZOLE 500 MG PREMIX 100 ML IV SCH ×2 (09:48→20:10)
[2022-04-26] MEDS: CITRIC ACID/SODIUM CITRATE SOLN 30ML UDC PO SCH ×3 (09:48→18:02)
[2022-04-26] MEDS: DEXT 5%/0.45% NACL 1000ML 1,000 ML IV SCH (11:36)
[2022-04-26 12:36] LABS: PLATELET ESTIMATE NORMAL
[2022-04-26 15:32] LABS: HEMATOCRIT 23.5 % (42.0-52.0); HEMOGLOBIN 7.6 g/dL (14.0-18.0)
[2022-04-26 15:41] LABS: CHLORIDE 112 mEq/L (98-107)
[2022-04-26] MEDS ORDERED: POTASSIUM CHLORIDE 20MEQ/PACKET PO NR (16:45)
[2022-04-26 23:59] LABS: HEMATOCRIT 23.5 % (42.0-52.0); HEMOGLOBIN 7.7 g/dL (14.0-18.0)
[2022-04-27] VITALS (22 sets, daily range): BP systolic 74–117; BP diastolic 49–93
[2022-04-27 00:12] LABS: CHLORIDE 112 mEq/L (98-107)
[2022-04-27] MEDS: DEXT 5%/0.45% NACL 1000ML 1,000 ML IV SCH (05:11)
[2022-04-27] MEDS: PANTOPRAZOLE SODIUM 40 MG/VIAL IV SCH ×2 (05:11→16:42)
[2022-04-27 06:10] LABS: HEMATOCRIT. 24.2 % (42.0-52.0); HEMOGLOBIN. 7.9 g/dL (14.0-18.0); MEAN CORPUSCULAR HEMOGLOBIN 29.6 pg (28.0-32.0); MEAN CORPUSCULAR VOLUME 90.9 fL (80.0-94.0); MEAN PLATELET VOLUME 11.4 fl (7.4-10.4); PLATELET 128 x1000/uL (130-400); RED BLOOD CELL COUNT 2.67 mill/uL (4.7-6.1); RED CELL DISTRIBUTION WIDTH 16.2 % (11.6-14.6)
[2022-04-27 06:38] LABS: CHLORIDE 111 mEq/L (98-107)
[2022-04-27 07:37] LABS: PLATELET ESTIMATE SLIGHTLY DECREASED
[2022-04-27] MEDS: CEFEPIME 1,000 MG in DEXTROSE 5% WATER 50 ML IV SCH ×2 (11:02→21:00)
[2022-04-27] MEDS: METRONIDAZOLE 500 MG PREMIX 100 ML IV SCH ×2 (11:07→22:29)
[2022-04-27 12:47] LABS: HEMOGLOBIN 7.2 g/dL (14.0-18.0)
[2022-04-27] MEDS ORDERED: IOHEXOL-350 100 ML BOTTLE ONE (17:24)
[2022-04-28] VITALS (11 sets, daily range): BP systolic 114–136; BP diastolic 54–75
[2022-04-28] MEDS: CEFEPIME 1,000 MG in DEXTROSE 5% WATER 50 ML IV SCH (02:19)
[2022-04-28] MEDS: PANTOPRAZOLE SODIUM 40 MG/VIAL IV SCH ×2 (06:18→16:51)
[2022-04-28 08:04] LABS: BASOPHILS % 0.2 % (0.0-2.0); EOSINOPHILS % 1.5 % (0.0-5.0); HEMATOCRIT. 23.2 % (42.0-52.0); HEMOGLOBIN. 7.6 g/dL (14.0-18.0); LYMPHOCYTES % 9.5 % (20.0-50.0); MEAN CORPUSCULAR HEMOGLOBIN 29.9 pg (28.0-32.0); MEAN CORPUSCULAR VOLUME 90.7 fL (80.0-94.0); MEAN PLATELET VOLUME 11.2 fl (7.4-10.4); MONOCYTES % 7.9 % (2.0-8.0); NEUTROPHILS % 80.9 % (40.0-76.0); PLATELET 144 x1000/uL (130-400); RED BLOOD CELL COUNT 2.56 mill/uL (4.7-6.1); RED CELL DISTRIBUTION WIDTH 16.2 % (11.6-14.6)
[2022-04-28] MEDS: METRONIDAZOLE 500 MG PREMIX 100 ML IV SCH (08:27)
[2022-04-28 09:28] LABS: CHLORIDE 112 mEq/L (98-107)
== END 2022-04-28 19:50 | DRG 871 ==
LOC: ER 03:03 → EDBEDREQ 05:40 → EDBEDREQTM 05:40 → ENRESERV 14:52 → MICUNO 16:14 → MICUSO 22:00 → 5EST 04-27 08:40
PROVIDERS: ADMIT Internal Medicine Nephrology; ATTEND Internal Medicine Nephrology
PROC: 30233N1 Transfusion of Nonautologous Red Blood Cells into Peripheral Vein, Percutaneous Approach (ICD-10-PCS; principal; 2022-04-24)
DX: A41.9 Sepsis, unspecified organism (principal); E43 Unspecified severe protein-calorie malnutrition; J96.00 Acute respiratory failure, unspecified whether with hypoxia or hypercapnia; J69.0 Pneumonitis due to inhalation of food and vomit; U07.1 COVID-19; N17.9 Acute kidney failure, unspecified; E87.0 Hyperosmolality and hypernatremia; E87.20 Acidosis, unspecified; K92.0 Hematemesis; D50.9 Iron deficiency anemia, unspecified; K22.70 Barrett's esophagus without dysplasia; J44.9 Chronic obstructive pulmonary disease, unspecified; K29.70 Gastritis, unspecified, without bleeding; I10 Essential (primary) hypertension; K44.9 Diaphragmatic hernia without obstruction or gangrene; Z68.21 Body mass index [BMI] 21.0-21.9, adult; Z79.82 Long term (current) use of aspirin; Z79.899 Other long term (current) drug therapy; Z93.1 Gastrostomy status; Z87.11 Personal history of peptic ulcer disease; Z87.19 Personal history of other diseases of the digestive system; Z86.73 Personal history of transient ischemic attack (TIA), and cerebral infarction without residual deficits
CPT/HCPCS: 36415; 36600; 71045; 74174; 78278; 80048; 80053; 80202; 81003; 82270; 82375; 82550; 82553; 82607; 82728; 82746; 82805; 83540; 83550; 83605; 83735; 84100; 84484; 85014; 85018; 85025; 85027; 85044; 86850; 86900; 86920; 87426; 93005; 93970; 99285; A6261; A9560; C9113; J0692; J0696; J1200; J2354; J2405; J3370; J3490; J7030; J7050; J7060; P9016; Q9967